=== PATIENT | female | born 2005 | race Caucasian/White ===

== ENCOUNTER 2025-03-01 08:50 | Outpatient (AMB) | payer BC, SELFPAY ==
--- NOTE | 2025-03-01 08:57 | MHC.PC.OV ---
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 She has hx anxiety, depression, anorexia, scoliosis, and mild, intermittent asthma. PULM: States that she has not needed an inhaler since childhood. Pysch: She did go to an outpatient program a few years ago to treat the anorexia and felt like that was helpful. She states that since then she has struggled to find a therapist. Her printing table hand has been prescribing SSRIs but she does not like how it makes her feel. She has tried prozac and zoloft but felt ineffective. She would like to manage this more with a therapist help. She feels like she is overall controlled right now and does not need any partial hospitalization programs. Denies any history of SI/HI or visual or auditory hallucinations. 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 She enjoys music as an outlet and also arts. 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 1. Little interest or pleasure in doing things: more than half the days 2. Feeling down, depressed, or hopeless: several days 3. Trouble falling or staying asleep, or sleeping too much: several days 4. Feeling tired or having little energy: nearly every day 5. Poor appetite or overeating: nearly every day 6. Feeling bad about yourself - or that you are a failure or have let yourself or your family down: more than half the days 7. Trouble concentrating on things, such as reading the newspaper or watching television: nearly every day 8. Moving or speaking so slowly that other people could have noticed. Or the opposite - being so fidgety or restless that you have been moving around a lot more than usual: not at all 9. Thoughts that you would be better off or of hurting yourself in some way: not at all Total score: 15 Depression Screening Interpretation: Positive Depression Screening Follow-up: Existing condition, Community Mental Health Worker F/U and Declines treatment Depression Screening Done: Yes 62537 - PHQ-9 Billing: Yes Source: Developed by Drs. Camden Hirsch, Raysa Lincoln, Trung Montoya and colleagues, with an educational amarjit from [employer]. Thrive Questionnaire Date Thrive assessed: 02/26/25 I am a: Patient What is your living situation today?: I have a steady place to live Within the past 12 months, did the food you bought not last and you didn't have the money to get more?: Never true Within the past 12 months, did you worry whether your food would run out before you got money to buy more?: Never true Do you have trouble paying for medicines?: No Do you have trouble getting transportation to medical appointments?: No Do you have trouble paying your heating and electricity bill?: No Do you have trouble taking care of your child, family member or friend?: No Do you have trouble with day-to-day activities such as bathing, preparing meals, shopping, managing finances, etc.?: No Are you currently unemployed and looking for a job?: No Are you interested in more education?: No Please select the resources that you would like help with: None Currently or been in a relationship where the following occur: No concerns reported THRIVE Score: 0 AUDIT C Alcohol Use Questionnaire (AUDIT-C) 1. How often do you have a drink containing alcohol?: Monthly or less 2. How many drinks containing alcohol do you have on a typical day when you are drinking?: 1 or 2 3. How often do you have six or more drinks on one occasion?: Never Total Score: 1 BELÉN-7 AMB Questionnaire BELÉN-7 Date BELÉN - 7 assessed: 03/01/25 Feeling nervous, anxious, or on edge: 3 = Nearly every day Not being able to stop or control worryin = More than half the days Worrying too much about different things: 2 = More than half the days Trouble relaxin = Several days Being so restless that it is hard to sit still: 1 = Several days Becoming easily annoyed or irritable: 0 = Not at all Feeling afraid as if something awful might happen: 3 = Nearly every day Total BELÉN-7 score (0-4 normal; 5-9 mild; 10-14 moderate; 15-21 severe): 12 Source: Developed by Drs. Cadmen Hirsch, Raysa Lincoln, Trung Montoya and colleagues, with an educational amarjit from [employer]. BELÉN-7 Assessment Billing BELÉN-7 Assessment Tool: BELÉN-7 Assessment 10461 Physical exam (Primary Care) Vital Signs: Last Vital Signs Temp 97.7 F 03/01/25 09:01 Pulse 91 03/01/25 09:01 Resp 12 03/01/25 09:01 BP 96/70 03/01/25 09:01 Pulse Ox 97 03/01/25 09:01 Oxygen Delivery Method Room Air 03/01/25 09:01 BMI result Body Mass Index 24.9 Tobacco/Smoking Status: Tobacco use Status Tobacco use date assessed 03/01/25 03/01/25 09:06 Patient Tobacco Use Status Never used Tobacco 03/01/25 09:06 e-Cigarette/Vaping Use Never Used 03/01/25 09:06 PHQ-9: PHQ-9 Score PHQ-9: Total score 15 03/01/25 09:06 Depression Screening Interpretation: Positive Depression Screening Follow-up: Existing condition, Community Mental Health Worker F/U and Declines treatment Thrive Assessment: Date of Thrive Assessment Date Thrive assessed 02/26/25 03/01/25 09:06 Currently or been in a relationship where the following occur: No concerns reported Const Orientation/consciousness: patient oriented x3 HENMT Ears: hearing grossly normal bilaterally Neck Thyroid: Thyroid normal Lymphatic: no lymphadenopathy noted Resp Auscultation: clear to auscultation bilaterally Cardio Rate: regular rate Rhythm: regular rhythm Heart sounds: S1 normal heart sound present and S2 normal heart sound present GI Inspection: Yes normal to inspection Palpation (GI): Soft to palpation and Other GI palpation findings present (nontender, no cva tenderness) Auscultation: normoactive bowel sounds Rectal Exam - Female: deferred Skin General skin exam: no rashes or lesions noted Neuro General: patient oriented x3, gait normal and no focal motor deficits Coding Level of Care Code New Pt Level 3 (27977) Complex EM visit Add On G2211 Diagnoses Generalized anxiety disorder F41.1 Major depressive disorder, recurrent, mild F33.0 Anorexia R63.0 Mild asthma without complication J45.909 Additional Codes PHQ-9 - 13774 - PHQ-9 Billing: Yes ([id number]) BELÉN-7 Assessment Billing - BELÉN-7 Assessment Tool: BELÉN-7 Assessment 51174 ([id number]) Assessment & Plan Assessment & Plan (1) Generalized anxiety disorder: Code(s): F41.1 - Generalized anxiety disorder Category: Medical Plan: Referral to behavioral health. Feels stable. Advised to seek emergent medical treatment should anything worsen or change. (2) Major depressive disorder, recurrent, mild: Code(s): F33.0 - Major depressive disorder, recurrent, mild Category: Medical Plan: As above (3) Anorexia: Code(s): R63.0 - Anorexia Category: Medical Plan: As above. We will monitor (4) Mild asthma without complication: Code(s): J45.909 - Unspecified asthma, uncomplicated Category: Medical Plan: No recent exacerbations Plan Labs ordered today. We will follow up pending test results. Advised to follow up for a physical exam. Sooner if needed. Orders: Orders Comprehensive Wiggins. Panel Fast Today F33.0 - Major depressive disorder, recurrent, mild, F41.1 - Generalized anxiety disorder, J45.909 - Unspecified asthma, uncomplicated, R63.0 - Anorexia Lipid Panel Today F33.0 - Major depressive disorder, recurrent, mild, F41.1 - Generalized anxiety disorder, J45.909 - Unspecified asthma, uncomplicated, R63.0 - Anorexia Vitamin B12 and Folate Today F33.0 - Major depressive disorder, recurrent, mild, F41.1 - Generalized anxiety disorder, J45.909 - Unspecified asthma, uncomplicated, R63.0 - Anorexia Complete Blood Count Auto Diff Today F33.0 - Major depressive disorder, recurrent, mild, F41.1 - Generalized anxiety disorder, J45.909 - Unspecified asthma, uncomplicated, R63.0 - Anorexia TSH reflex Free T4 Today F33.0 - Major depressive disorder, recurrent, mild, F41.1 - Generalized anxiety disorder, J45.909 - Unspecified asthma, uncomplicated, R63.0 - Anorexia Magnesium Today F33.0 - Major depressive disorder, recurrent, mild, F41.1 - Generalized anxiety disorder, J45.909 - Unspecified asthma, uncomplicated, R63.0 - Anorexia Referrals Behavioral Health Referral F33.0 - Major depressive disorder, recurrent, mild, F41.1 - Generalized anxiety disorder, R63.0 - Anorexia
[2025-03-01 09:01] VITALS: BP 96/70; PULSE 91; RESP 12; TEMP 36.5; O2SAT 97; BMI 24.9
== END 2025-03-01 09:28 | disposition home or self-care (01) ==
LOC: HO.HMCFM 08:51
PROVIDERS: PCP Physician Assistant; Visit Provider Physician Assistant
DX: F41.1 Generalized anxiety disorder (principal); F33.0 Major depressive disorder, recurrent, mild; R63.0 Anorexia; J45.909 Unspecified asthma, uncomplicated

== ENCOUNTER → 2025-03-01 08:50 | Outpatient (BNVA) | payer BC, SELFPAY | PROVIDERS: PCP Physician Assistant; Visit Provider Physician Assistant | DX: F41.1 Generalized anxiety disorder (principal); J45.20 Mild intermittent asthma, uncomplicated; F33.0 Major depressive disorder, recurrent, mild; R63.0 Anorexia; J45.909 Unspecified asthma, uncomplicated | CPT/HCPCS: 96127 ==

== ENCOUNTER 2025-03-02 10:47 | Outpatient (REF) | payer BC, SELFPAY ==
[2025-03-02 14:13] LABS: MANUAL DIFF FLAG NO
[2025-03-02 14:26] LABS: Basophils Absolute Auto 0.1 X10*3/uL (0.0-0.2); Basophils Percent Auto 0.7 % (0-2); Eosinophils Absolute Auto 0.2 X10*3/uL (0.0-0.4); Eosinophils Percent Auto 2.7 % (0-4); Hemoglobin 13.7 g/dl (12.0-16.0); Imm Gran Abs Auto 0.02 X10*3/uL (0.00-0.03); Imm Gran Pct Auto 0.3 % (0.0-0.4); Lymphocytes Absolute Auto 2.5 X10*3/uL (1.2-4.9); Mean Corpuscular HGB Conc 33.4 g/dl (31.0-35.0); Mean Corpuscular Volume 89.9 fL (80.0-98.0); Mean Platelet Volume 12.8 fL (9.4-12.3); Monocytes Absolute Auto 0.6 X10*3/uL (0.1-1.2); Monocytes Percent Auto 8.3 % (2-11); Neutrophils Absolute Auto 3.6 x10*3/uL (2.0-8.3); Platelet Count 185 X10*3/uL (160-400); Red Blood Count 4.56 X10*6/uL (4.20-5.50); Red Cell Distribution Width 13.6 % (11.0-16.0)
[2025-03-02 14:56] LABS: Alanine Aminotransferase 13 U/L (0-31); Albumin Level 4.1 g/dL (3.5-5.0); Alkaline Phosphatase 63 U/L (39-117); Anion Gap 11 (12-20); Aspartate Amino Transferase 31 U/L (5-31); Bilirubin Total 0.4 mg/dL (0.0-1.0); Blood Urea Nitrogen 8 mg/dL (9-16); Calcium 9.3 mg/dL (8.4-10.2); Carbon Dioxide 26 mmol/L (22-29); Chloride 108 mmol/L (96-108); Cholesterol 165 mg/dL (<200); Estimated Glomerular Filt Rate > 60; Glucose Fasting 75 mg/dL (60-99); HDL Cholesterol 59 mg/dL (>40); LDL Cholesterol Calculated 94 mg/dL (<100); Magnesium 1.9 mg/dL (1.6-2.6); Potassium 4.2 mmol/L (3.3-5.1); Sodium 141 mmol/L (135-145); TSH reflex Free T4 1.82 uIU/mL (0.32-4.0); Total Protein 7.2 g/dL (6.5-8.0); Triglycerides 60 mg/dL (<150)
[2025-03-02 15:12] LABS: Vitamin B12 610 pg/mL (200-900)
[2025-03-02 16:04] LABS: Folate 6.8 ng/mL (> or = 4.0)
== END 2025-03-02 10:48 | disposition home or self-care (01) ==
LOC: HO.WFDLDS 10:47
PROVIDERS: Visit Provider Physician Assistant
DX: R63.0 Anorexia (principal); F33.0 Major depressive disorder, recurrent, mild; F41.1 Generalized anxiety disorder; J45.909 Unspecified asthma, uncomplicated; Z13.6 Encounter for screening for cardiovascular disorders
CPT/HCPCS: 36415; 80053; 80061; 82607; 82746; 83735; 84443; 85025

== ENCOUNTER 2025-05-17 10:55 | Outpatient (AMB) | payer BC, SELFPAY ==
--- NOTE | 2025-05-17 11:06 | MHC.PC.OV ---
Vital Signs 05/17/25 11:07 Height 5 ft 1.77 in Weight 133 lb 4 oz BMI 24.6 BP 90/56 L Blood Pressure Location Lt brachial Position Sitting Respiration 12 Pulse 72 Pulse Source Pulse Oximeter Temp 97.5 F Temp Source Oral Pulse Oximetry (%) 97 Oxygen Delivery Method Room Air Intake Visit Reasons: cpe Intake Note: Physical Recruitment Internship Required: No Allergies No Known Allergies Allergy (Verified 05/17/25 11:06) Tobacco use date assessed: 05/17/25 Dental Screening Dental Screen Date: 03/01/25 HPI cpe HPI Details Pt is a 19 y/o female who presents today for a physical exam. She has hx anxiety, depression, anorexia, scoliosis, and mild, intermittent asthma. PULM: States that she has not needed an inhaler since childhood. Pysch: She did go to an outpatient program a few years ago to treat the anorexia and felt like that was helpful. She has recently started following with a therapist and has found this very helpful. She has tried prozac and zoloft but felt ineffective. Denies any history of SI/HI or visual or auditory hallucinations. 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 She enjoys music as an outlet and also arts. 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 Alcohol intake: current Comment: Once in awhile Patient Tobacco Use Status: Never used Tobacco e-Cigarette/Vaping Use: Never Used Second Hand Smoke Exposure: No service: No Current occupational status: employed and student Current occupation: office manager executive assistant Current occupational exposures/hazards: No Cognitive needs: No Hearing needs: No Vision needs: No Questionnaire Thrive Questionnaire Date Thrive assessed: 02/26/25 I am a: Patient What is your living situation today?: I have a steady place to live Within the past 12 months, did the food you bought not last and you didn't have the money to get more?: Never true Within the past 12 months, did you worry whether your food would run out before you got money to buy more?: Never true Do you have trouble paying for medicines?: No Do you have trouble getting transportation to medical appointments?: No Do you have trouble paying your heating and electricity bill?: No Do you have trouble taking care of your child, family member or friend?: No Do you have trouble with day-to-day activities such as bathing, preparing meals, shopping, managing finances, etc.?: No Are you currently unemployed and looking for a job?: No Are you interested in more education?: No Please select the resources that you would like help with: None Currently or been in a relationship where the following occur: No concerns reported THRIVE Score: 0 AUDIT C Alcohol Use Questionnaire (AUDIT-C) 1. How often do you have a drink containing alcohol?: Monthly or less 2. How many drinks containing alcohol do you have on a typical day when you are drinking?: 1 or 2 3. How often do you have six or more drinks on one occasion?: Never Total Score: 1 BELÉN-7 AMB Questionnaire BELÉN-7 Date BELÉN - 7 assessed: 03/01/25 Source: Developed by Drs. Camden Hirsch, Raysa Lincoln, Trung Montoya and colleagues, with an educational amarjit from [employer]. Physical exam (Primary Care) Vital Signs: Last Vital Signs Temp 97.5 F 05/17/25 11:07 Pulse 72 05/17/25 11:07 Resp 12 05/17/25 11:07 BP 90/56 L 05/17/25 11:07 Pulse Ox 97 05/17/25 11:07 Oxygen Delivery Method Room Air 05/17/25 11:07 BMI result Body Mass Index 24.6 Tobacco/Smoking Status: Tobacco use Status Tobacco use date assessed 03/01/25 03/01/25 09:06 Patient Tobacco Use Status Never used Tobacco 03/01/25 09:10 e-Cigarette/Vaping Use Never Used 03/01/25 09:10 Thrive Assessment: Date of Thrive Assessment Date Thrive assessed 02/26/25 03/01/25 09:06 Currently or been in a relationship where the following occur: No concerns reported Const Orientation/consciousness: patient oriented x3 HENMT Ears: hearing grossly normal bilaterally and TM's normal bilaterally General nose exam: No nasal polyps present Face and sinus: Yes sinuses nontender Mouth: Normal oral and palatal mucosa present Eyes Pupils: Equal, round and reactive pupils present EOM: EOMs intact bilaterally Neck Neck: Yes full ROM and Yes no lymphadenopathy Thyroid: Thyroid normal Chest Chest palpation & inspection: normal inspection of the chest Resp Auscultation: clear to auscultation bilaterally Cardio Rate: regular rate Rhythm: regular rhythm Heart sounds: S1 normal heart sound present and S2 normal heart sound present Peripheral pulses: Peripheral pulses 2+ throughout GI Other: Soft, nontender Auscultation: normal bowel sounds Rectal Exam - Female: deferred General: Yes no CVA tenderness Back/Spine/Pelvis Other: Nontender Back: no CVA tenderness Skin General skin exam: no rashes or lesions noted Neuro General: patient oriented x3, gait normal, CN's II-XI intact bilaterally and deep tendon reflexes 2+ bilaterally Cranial nerves: Yes Equal, round and reactive pupils present Motor exam (neuro): 5/5 motor strength present throughout Sensory Exam: double simultaneous stimulation for sensation normal Coordination: [id number] test normal and Romberg test negative Extrem General: Yes normal to inspection and Yes full ROM Psych Affect: normal affect Attitude: cooperative Thought process: Normal thought process present Thought content: Normal thought content present Insight: Good insight present (Psych) Judgement: Good judgement present (Psych) Results Reviewed Results Reviewed: Laboratory Tests 03/02/25 10:49 WBC 7.0 RBC 4.56 Hgb 13.7 Hct 41.0 Plt Count 185 Sodium 141 Potassium 4.2 Chloride 108 Carbon Dioxide 26 Creatinine 0.69 Estimated GFR > 60 Fasting Glucose 75 AST 31 ALT 13 Triglycerides 60 Cholesterol 165 LDL Cholesterol, Calc 94 HDL Cholesterol 59 TSH 1.82 Coding Level of Care Code Est Pt Prev Care 18-39y(65011) Diagnoses Routine general medical examination at a health care facility Z00.00 Generalized anxiety disorder F41.1 Major depressive disorder, recurrent, mild F33.0 Assessment & Plan Assessment & Plan (1) Routine general medical examination at a health care facility: Code(s): Z00.00 - Encounter for general adult medical examination without abnormal findings Plan: Health maintenance reviewed. Labs reviewed. Continue current regimen (2) Generalized anxiety disorder: Code(s): F41.1 - Generalized anxiety disorder Category: Medical Plan: Doing well with therapy. Plans to continue at school. (3) Major depressive disorder, recurrent, mild: Code(s): F33.0 - Major depressive disorder, recurrent, mild Category: Medical Plan: As above
[2025-05-17 11:07] VITALS: BP 90/56; PULSE 72; RESP 12; TEMP 36.4; O2SAT 97; BMI 24.6
--- OUTSIDE RECORDS SUMMARY | 2025-05-17 11:37 | XMS_ITS ---
Author Name [facility] Organization Unknown Care Team Organization Name Specialty Phone Email Start Date End [facility] [employer] [facility] ([facility]) 08/25/2024 [facility] JOSE MARTIN LUNDY Primary Care 08/18/2022 05/29/2024
== END 2025-05-17 11:22 | disposition home or self-care (01) ==
LOC: HO.HMCFM 10:56
PROVIDERS: PCP Physician Assistant; Visit Provider Physician Assistant
DX: Z00.00 Encounter for general adult medical examination without abnormal findings (principal); F41.1 Generalized anxiety disorder; F33.0 Major depressive disorder, recurrent, mild